=== PATIENT | male | born 1985 | race Caucasian/White ===

== ENCOUNTER 2021-04-01 05:56 | Emergency (ER) | payer OTHER, BC ==
[2021-04-01] MEDS ORDERED: TORAdol 30 mg Injection IV ONE (06:29)
[2021-04-01] MEDS ORDERED: TORAdol 30 mg Injection ONE (06:32)
[2021-04-01 06:42] LABS: Absolute Neutrophil Ct (ANC) 4.89 (1.4-6.9); BASOPHIL % 0.4 % (0.0-0.4); Basophil (Absolute #) 0.04 (0-0.4); Eosinophil % 1.2 % (0.00-5.0); Eosinophil (Absolute #) 0.11 (0-0.5); Hematocrit 49.4 % (42-50); Hemoglobin 16.9 gm/dl (12.5-18.0); Lymphocyte (Absolute #) 3.63 (1.0-4.6); Lymphocytes % 38.5 % (24.0-44.0); Mean Cell Volume 78.9 fl (78-100); Mean Corpuscular Hgb Concent. 34.2 g/dl (32-36); Mean Platelet Volume 10.4 fl (7.5-11.0); Monocyte (Absolute #) 0.75 (0.0-1.3); Neutrophil % 51.9 % (36.0-66.0); Platelet Count 341 K/mm3 (150-450); Red Blood Count 6.26 M/mm3 (4.1-5.6); Red Cell Distribution Width 13.5 % (11.5-14.0); White Blood Count 9.4 K/mm3 (4.0-10.5)
--- NOTE | 2021-04-01 06:43 | ERPHSYRPT ---
- History of Present Illness Historian: patient Exam Limitations: no limitations Patient Subjective Stated Complaint: pt states "I was woke up with severe right sided stomach pain." Triage Nursing Assessment: pt ambulated into the er; pt is grasping RUQ; c/o RUQ pain; pt states 9/10 pain to RUQ; pt states pain is sharp and constent; pt denies vomiting, diarrhea; pt c/o nausea; pt states he had an episode like this a week ago; pt abd is round, soft, tender to RUQ; pt denies rebound tenderness; hyperactive bowel sounds in all quads; mucus membrane pink and moist; pt states last BM at 0200; vitals wnl Timing/Duration: today, constant, sudden, worse Activities at Onset: sleep Quality: cramping, sharpness Abdominal Pain Onset Location: RUQ Pain Radiation: no radiation Severity of Pain-Max: severe Severity of Pain-Current: severe Modifying Factors: Improves With: nothing Associated Symptoms: denies symptoms Previous symptoms: same symptoms as today Hx Tetanus, Diphtheria Vaccination/Date Given: Yes (2020) Hx Influenza Vaccination/Date Given: No Hx Pneumococcal Vaccination/Date Given: No <MATEUS MAGALLON - Last Filed: 04/01/21 06:38> <MCKENNA NEGRON - Last Filed: 04/01/21 07:44> - History of Present Illness Time Seen by Provider: 04/01/21 06:21 Physician History: 36 years old healthy male presented in the ER with chief complaint of sudden onset right upper quadrant pain waking him up from sleep almost 2 hours ago, constant, moderate to severe sharp cramping without any significant aggravating or relieving factors. Denies any associated nausea or vomiting or diarrhea. Reports having similar symptoms almost a week ago. No fever or chills reported. (MATEUS MAGALLON) Allergies/Adverse Reactions: No Known Drug Allergies Allergy (Unverified 04/01/21 06:03) Home Medications: Duloxetine HCl 30 mg [Cymbalta 30 MG Capsule] 30 mg PO BID 04/01/21 [History] Lisinopril/Hydrochlorothiazide [Zestoretic 20-25 Tablet] 1 each PO DAILY 04/01/21 [History] Montelukast Sodium 10 mg [Singulair 10 MG] 10 mg PO DAILY 10/29/21 [History] Travel Risk - International Travel Have you traveled outside of the country in past 3 weeks: No - Coronavirus Screening Are you exhibiting any of the following symptoms?: No Close contact with a COVID-19 positive Pt in past 14-21 Days: No - Vaccine Status Have you recieved a Covid-19 vaccination: Yes Horticulture Supervisor: Moderna - Vaccination Dates Date of 2cond Vaccination (if applicable): 06/24 <MATEUS MAGALLON - Last Filed: 04/01/21 06:38> - Review of Systems Constitutional: No Symptoms Eyes: No Symptoms Ears, Nose, & Throat: No Symptoms Respiratory: No Symptoms Cardiac: No Symptoms Abdominal/Gastrointestinal: Abdominal Pain Genitourinary Symptoms: No Symptoms Musculoskeletal: No Symptoms Skin: No Symptoms Neurological: No Symptoms Psychological: No Symptoms Endocrine: No Symptoms Immunological/Allergic: No Symptoms <MATEUS MAGALLON - Last Filed: 04/01/21 06:38> - Past Medical History Pertinent Past Medical History: Yes Neurological History: Migraines ENT History: No Pertinent History Cardiac History: Hypertension Respiratory History: Sleep Apnea Endocrine Medical History: No Pertinent History Musculoskeletal History: No Pertinent History GI Medical History: Other History: No Pertinent History Psycho-Social History: Anxiety, Depression Male Reproductive Disorders: Other Other Medical History: fatty liver, ED, PTSD - Past Surgical History Past Surgical History: Yes Gastrointestinal: Hernia Repair Male Surgical History: Vasectomy - Social History Smoking Status: Never smoker Exposure to second hand smoke: Yes Drug Use: none Patient Lives Alone: No <MATEUS MAGALLON - Last Filed: 04/01/21 06:38> - Physical Exam General Appearance: no apparent distress, alert Eye Exam: PERRL/EOMI, eyes nml inspection Ears, Nose, Throat Exam: normal ENT inspection, pharynx normal Neck Exam: normal inspection, supple, full range of motion Respiratory Exam: normal breath sounds, lungs clear Cardiovascular Exam: regular rate/rhythm, normal heart sounds Gastrointestinal/Abdomen Exam: soft, normal bowel sounds, tenderness, guarding (Right upper quadrant right upper quadrant) Extremity Exam: normal inspection, normal range of motion Neurologic Exam: alert, oriented x 3, cooperative Skin Exam: normal color, warm Lymphatic Exam: adenopathy SpO2 Interpretation: normal SpO2: 96 O2 Delivery: Room Air <MATEUS MAGALLON - Last Filed: 04/01/21 06:38> - Nursing Vital Signs Nursing Vital Signs: Initial Vital Signs Temperature 96.9 F 04/01/21 06:06 Blood Pressure 140/99 04/01/21 06:06 Pain Scale Pain Intensity 9 Ordered Tests: Active Orders 24 hr Category Date Time Status IV Insertion STAT Care 04/01/21 06:29 Active NPO (ED) STAT Care 04/01/21 06:29 Active GALLBLADDER [US] Stat Exams 04/01/21 06:39 Taken CBC W DIFF Stat Lab 04/01/21 06:10 Completed CMP Stat Lab 04/01/21 06:10 Completed LIPASE Stat Lab 04/01/21 06:10 Completed UA W/RFX UR CULTURE Stat Lab 04/01/21 06:59 Completed Medication Summary Discontinued Medications Generic Name Dose Route Start Last Admin Trade Name Eda PRN Reason Stop Dose Admin Ketorolac Tromethamine 30 mg 04/01/21 06:29 04/01/21 06:33 Ketorolac Tromethamine 30 Mg/Ml Inj IV 04/01/21 06:30 30 mg STAT ONE Administration Ketorolac Tromethamine Confirm 04/01/21 06:32 Ketorolac Tromethamine 30 Mg/Ml Inj Administered 04/01/21 06:33 Dose 30 mg .ROUTE .STK-MED ONE Lab/Rad Data: Laboratory Result Diagrams 04/01/21 06:10 04/01/21 06:10 Laboratory Results 04/01/21 04/01/21 04/01/21 Range/Units 06:59 06:10 06:10 WBC 9.4 (4.0-10.5) K/mm3 RBC 6.26 H* (4.1-5.6) M/mm3 Hgb 16.9 (12.5-18.0) gm/dl Hct 49.4 (42-50) % MCV 78.9 (78-100) fl MCH 27.0 (26-32) pg MCHC 34.2 (32-36) g/dl RDW 13.5 (11.5-14.0) % Plt Count 341 (150-450) K/mm3 MPV 10.4 (7.5-11.0) fl Gran % 51.9 (36.0-66.0) % Eos # (Auto) 0.11 (0-0.5) Absolute Lymphs (auto) 3.63 (1.0-4.6) Absolute Monos (auto) 0.75 (0.0-1.3) Lymphocytes % 38.5 (24.0-44.0) % Monocytes % 8.0 (0.0-12.0) % Eosinophils % 1.2 (0.00-5.0) % Basophils % 0.4 (0.0-0.4) % Absolute Granulocytes 4.89 (1.4-6.9) Basophils # 0.04 (0-0.4) Sodium 140 (137-145) mmol/L Potassium 4.2 (3.5-5.1) mmol/L Chloride 103 (98-107) mmol/L Carbon Dioxide 26 (22-30) mmol/L Anion Gap 15.1 H (5-15) MEQ/L BUN 16 (9-20) mg/dL Creatinine 0.95 (0.66-1.25) mg/dL Estimated GFR > 60.0 ML/MIN Glucose 119 H (74-106) mg/dL Calcium 9.9 (8.4-10.2) mg/dL Total Bilirubin 0.50 (0.2-1.3) mg/dL AST 59 (17-59) U/L ALT 119 H (0-50) U/L Alkaline Phosphatase 62 (38-126) U/L Serum Total Protein 8.0 (6.3-8.2) g/dL Albumin 4.8 (3.5-5.0) g/dL Lipase 187 (23-300) U/L Urine Color YELLOW (YELLOW) Urine Appearance CLEAR (CLEAR) Urine pH 5.0 (5-6) Ur Specific [place] 1.026 (1.005-1.025) Urine Protein NEGATIVE (Negative) Urine Ketones NEGATIVE (NEGATIVE) Urine Blood NEGATIVE (0-5) Josh/ul Urine Nitrite NEGATIVE (NEGATIVE) Urine Bilirubin NEGATIVE (NEGATIVE) Urine Urobilinogen NEGATIVE (0-1) mg/dL Ur Leukocyte Esterase NEGATIVE (NEGATIVE) Urine WBC (Auto) 0-2 (0-5) /HPF Urine RBC (Auto) NONE (0-2) /HPF U Epithel Cells (Auto) NONE (FEW) /HPF Urine Bacteria (Auto) NONE SEEN (NEGATIVE) /HPF Urine Mucus (Auto) SLIGHT (NEGATIVE) /HPF Urine Culture Reflexed NO (NO) Urine Glucose NEGATIVE (NEGATIVE) mg/dL <MATEUS MAGALLON - Last Filed: 04/01/21 06:38> - Progress Progress: improved, pain not gone completely, re-examined Counseled pt/family regarding: lab results, diagnosis, need for follow-up, rad results <MCKENNA NEGRON - Last Filed: 04/01/21 07:44> - Progress Progress Note: 04/01/21 06:57 36 years old is evaluated for right upper quadrant pain. Given Toradol for symptomatic relief. Work-up is pending, care is transferred to Dr. Negron at shift change for reevaluation after work-up and final disposition (MATEUS MAGALLON) 04/01/21 07:33 Gallbladder ultrasound (per machine packaging technician) shows gallbladder sludge without evidence of cholelithiasis or signs of acute cholecystitis. 04/01/21 07:43 Medical decision making: This patient states he is feeling better now. He has had a gallbladder evaluation in the past including a HIDA scan 2 years ago. He felt it might be his gallbladder. He did eat pizza last night and his symptoms were the same as they were a couple of years ago. Patient states [facility] is [facility] and he will follow up with his primary care and general surgery at the [facility]. Patient has Phenergan at home. He refuses Zofran prescription. He does not want any narcotic pain medicine. (MCKENNA NEGRON) <MATEUS MAGALLON - Last Filed: 04/01/21 06:38> - Departure Departure Disposition: Home Critical Care Time: No <MCKENNA NEGRON - Last Filed: 04/01/21 07:44> - Departure Clinical Impression: Right upper quadrant abdominal pain Condition: Stable Referrals: SERGIO MCINTOSH [Primary Care Provider] - Additional Instructions: Avoid fatty greasy spicy foods. Follow-up with your primary care physician for referral to general surgery for further management.
[2021-04-01 06:49] LABS: ALBUMIN 4.8 g/dL (3.5-5.0); ALKALINE PHOSPHATASE 62 U/L (38-126); ANION GAP 15.1 MEQ/L (5-15); BLOOD UREA NITROGEN 16 mg/dL (9-20); CHLORIDE 103 mmol/L (98-107); Calcium 9.9 mg/dL (8.4-10.2); Carbon Dioxide 26 mmol/L (22-30); Creatinine 1 0.95 mg/dL (0.66-1.25); EST GLOMERULAR FILTRATION RATE > 60.0 ML/MIN; Glucose 119 mg/dL (74-106); LIPASE 187 U/L (23-300); Potassium 4.2 mmol/L (3.5-5.1); SGOT/AST 59 U/L (17-59); SGPT/ALT 119 U/L (0-50); SODIUM 140 mmol/L (137-145)
[2021-04-01 07:07] LABS: Appearance CLEAR (CLEAR); Bilirubin NEGATIVE (NEGATIVE); Blood NEGATIVE Ery/ul (0-5); Glucose NEGATIVE (NEGATIVE); Ketones NEGATIVE (NEGATIVE); Leukocyte Esterase NEGATIVE (NEGATIVE); Mucus SLIGHT /HPF (NEGATIVE); Nitrite NEGATIVE (NEGATIVE); Protein,Urine Dip NEGATIVE (Negative); Specific Gravity 1.026 (1.005-1.025); Urobilinogen NEGATIVE mg/dL (0-1); WBC 0-2 /HPF (0-5)
[2021-04-01 07:12] LABS: Bacteria NONE SEEN /HPF (NEGATIVE)
[2021-04-01 08:09] VITALS: BP 113/90; PULSE 70; O2SAT 98
--- NOTE | 2021-04-01 08:52 | XRAY ---
Indication: Right upper quadrant pain. Two-dimensional gallbladder sonogram performed. Comparison: None Gallbladder normally distended with minimal sludge and 5 mm polyp near the neck of the gallbladder. No gallstones, wall thickening, or pericholecystic fluid. Common bile duct measures 4.6 mm. No intrahepatic biliary distention. Remaining visualized liver, pancreas, and right kidney sonographically unremarkable. Right kidney measures 11.6 cm in length. Impression: Minimal gallbladder sludge and tiny polyp. Negative for cholelithiasis or acute cholecystitis.
== END 2021-04-01 08:09 | disposition home or self-care (01) ==
LOC: ED 05:56
DX: R10.11 Right upper quadrant pain (principal)
CPT/HCPCS: 36000; 36415; 76705; 80053; 81001; 83690; 85025; 96374; 99284; J1885

== ENCOUNTER 2021-12-11 01:46 | Emergency (ER) | payer OTHER, BC ==
--- NOTE | 2021-12-11 01:55 | ERPHSYRPT ---
- History of Present Illness Time Seen by Provider: 12/11/21 01:55 Source: patient Exam Limitations: no limitations Physician History: The patient is a 36-year-old male who presents with a chief complaint of left testicular pain. Onset reportedly was just prior to arrival, an estimated 45 minutes. The patient apparently was sleeping and was awoke abruptly with pain in his left testicle. He drove himself to the emergency department. He denies any additional symptoms and denies any prior episodes of testicular pain. He denies dysuria, penile discharge, testicular swelling or erythema. He denies any history of STDs. The patient reported is . The pain is moderate to severe in severity nonradiating constant. Associated Symptoms: No nausea, No vomiting, No abdominal pain Allergies/Adverse Reactions: No Known Drug Allergies Allergy (Unverified 04/01/21 06:03) Home Medications: Duloxetine HCl 30 mg [Cymbalta 30 MG Capsule] 30 mg PO BID 04/01/21 [History] Lisinopril/Hydrochlorothiazide [Zestoretic 20-25 Tablet] 1 each PO DAILY 04/01/21 [History] Cetirizine HCl [Zyrtec] 10 mg PO HS 06/16/21 [History] Lorazepam 0.5 mg [Ativan 0.5 MG] 0.5 mg PO DAILY PRN PRN 06/16/21 [History] Rizatriptan Benzoate [Maxalt] 10 mg PO DAILY PRN PRN 06/16/21 [History] Hx Tetanus, Diphtheria Vaccination/Date Given: Yes (2020) Hx Influenza Vaccination/Date Given: No Hx Pneumococcal Vaccination/Date Given: No Travel Risk - Vaccine Status Have you recieved a Covid-19 vaccination: Yes 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 - Vaccination Dates Date of 2cond Vaccination (if applicable): 06/24 - Review of Systems Constitutional: No Fever, No Chills Abdominal/Gastrointestinal: No Abdominal Pain, No Nausea, No Vomiting Genitourinary Symptoms: Testicle Pain, No Dysuria, No Frequency, No Hematuria, No Incontinence, No Urgency, No Flank Pain, No Penile Discharge Musculoskeletal: No Symptoms Skin: No Symptoms Neurological: No Symptoms Psychological: No Symptoms Endocrine: No Symptoms Hematologic/Lymphatic: No Symptoms Immunological/Allergic: No Symptoms All Other Systems: Reviewed and Negative - Past Medical History Pertinent Past Medical History: Yes Neurological History: Migraines ENT History: No Pertinent History Cardiac History: Hypertension Respiratory History: Sleep Apnea Endocrine Medical History: No Pertinent History Musculoskeletal History: No Pertinent History GI Medical History: Other History: No Pertinent History Psycho-Social History: Anxiety, Depression Male Reproductive Disorders: Other Other Medical History: fatty liver, PTSD - Past Surgical History Past Surgical History: Yes Gastrointestinal: Hernia Repair Male Surgical History: Vasectomy - Social History Smoking Status: Never smoker Exposure to second hand smoke: Yes Drug Use: none Patient Lives Alone: No - Nursing Vital Signs Nursing Vital Signs: Initial Vital Signs Pulse Rate 65 12/11/21 01:50 Respiratory Rate 18 12/11/21 01:50 Blood Pressure 175/118 12/11/21 01:50 O2 Sat by Pulse Oximetry 98 12/11/21 01:50 Pain Scale Pain Intensity 3 - Physical Exam General Appearance: no apparent distress, obese Neck Exam: non-tender, supple Respiratory Exam: normal breath sounds, lungs clear, airway intact, No respiratory distress Cardiovascular Exam: regular rate/rhythm, normal heart sounds, capillary refill <2 sec, No murmur, No friction rub, No gallop Gastrointestinal/Abdomen Exam: soft, other (No hernia), No tenderness, No distention, No mass, No guarding Male Genitalia Exam: testicular tenderness, other (The patient had tenderness upon palpation of the left testicle, specifically the left epididymis. There is no evidence of high riding testicle, no blue dot sign, and the patient's cremasterics reflex was intact.), No hernia, No testicular mass, No penile lesion, No priapism, No penile discharge Extremity Exam: normal inspection Neurologic Exam: alert, oriented x 3, cooperative Skin Exam: normal color, warm, dry, No rash Lymphatic Exam: No adenopathy, No inguinal node tender (L), No inguinal node tender (R) O2 Delivery: Room Air - Course Nursing assessment & vital signs reviewed: Yes - CT Exams Abdomen/Pelvis CT Interpretation: Tele-radiologist Report (Mild left hydroureteroenephrosis with a 2 mm calculus in the distal left ureter) - Radiology Ultrasound Exam Scrotal Ultrasound: negative, No Torsion/Nml Flow (Discussed with US tech) Ordered Tests: Active Orders 24 hr Category Date Time Status ABDOMEN AND PELVIS W/0 CONTRAS [CT] Stat Exams 12/11/21 04:11 Taken TESTICLE [US] Stat Exams 12/11/21 02:06 Taken BMP Stat Lab 12/11/21 02:38 Completed CBC W DIFF Stat Lab 12/11/21 02:38 Completed CULTURE,URINE Stat Lab 12/11/21 03:59 Received UA W/RFX CULTURE Stat Lab 12/11/21 03:59 Completed Medication Summary Discontinued Medications Generic Name Dose Route Start Last Admin Trade Name Eda PRN Reason Stop Dose Admin Ketorolac Tromethamine 15 mg 12/11/21 02:07 12/11/21 02:38 Ketorolac Tromethamine 30 Mg/Ml Inj IV 12/11/21 02:08 15 mg STAT ONE Administration Ketorolac Tromethamine Confirm 12/11/21 02:38 Ketorolac Tromethamine 30 Mg/Ml Inj Administered 12/11/21 02:39 Dose 30 mg .ROUTE .STK-MED ONE Lab/Rad Data: Laboratory Result Diagrams 12/11/21 02:38 12/11/21 02:38 Laboratory Results 12/11/21 12/11/21 12/11/21 Range/Units 03:59 03:59 02:38 WBC (4.0-10.5) x10^3/uL RBC (4.1-5.6) x10^6/uL Hgb (12.5-18.0) g/dL Hct (42-50) % MCV (78-100) fL MCH (26-32) pg MCHC (32-36) g/dL RDW (11.5-14.0) % Plt Count (150-450) x10^3/uL MPV (7.5-11.0) fL Gran % (36.0-66.0) % Immature Gran % (Auto) (0.00-0.4) % Nucleat RBC Rel Count (0.00-0.1) % Eos # (Auto) (0-0.5) x10^3/uL Immature Gran # (Auto) (0.00-0.03) x10^3u/L Absolute Lymphs (auto) (1.0-4.6) x10^3/uL Absolute Monos (auto) (0.0-1.3) x10^3/uL Absolute Nucleated RBC (0.00-0.01) x10^3u/L Lymphocytes % (24.0-44.0) % Monocytes % (0.0-12.0) % Eosinophils % (0.00-5.0) % Basophils % (0.0-0.4) % Absolute Granulocytes (1.4-6.9) x10^3/uL Basophils # (0-0.4) x10^3/uL Sodium 140 (137-145) mmol/L Potassium 3.4 L (3.5-5.1) mmol/L Chloride 102 (98-107) mmol/L Carbon Dioxide 25 (22-30) mmol/L Anion Gap 16.6 H (5-15) MEQ/L BUN 15 (9-20) mg/dL Creatinine 1.15 (0.66-1.25) mg/dL Estimated GFR > 60.0 ML/MIN Glucose 149 H (74-106) mg/dL Calcium 9.4 (8.4-10.2) mg/dL Urinalys Dipstick Clnc MAIN LAB Urine Color DARK YELLOW (YELLOW) Urine Appearance CLOUDY (CLEAR) Urine pH 6.0 (5-6) Ur Specific [place] >=1.030 (1.005-1.025) POC Urine Protein Conf 100 (Negative) Urine Ketones NEGATIVE (NEGATIVE) Urine Nitrite NEGATIVE (NEGATIVE) Urine Bilirubin SMALL (NEGATIVE) Urine Urobilinogen 0.2 (0-1) mg/dL Urine Leukocytes NEGATIVE (NEGATIVE) Urine WBC (Auto) 0-2 (0-5) /HPF Urine RBC (Auto) >101 (0-2) /HPF U Epithel Cells (Auto) NONE (FEW) /HPF Urine Bacteria (Auto) NONE SEEN (NEGATIVE) /HPF Urine RBC LARGE (0-5) Josh/ul Unidentified Crystals 25-50 (NEGATIVE) /HPF Other Casts (Auto) 2-5 (NEGATIVE) /LPF Urine Mucus (Auto) SLIGHT (NEGATIVE) /HPF Ur Culture Indicated? YES Urine Glucose NEGATIVE (NEGATIVE) mg/dL Chlamydia DNA Probe NOT DETECTED (NEGATIVE) N.gonorrhoeae DNA Probe NOT DETECTED (NEGATIVE) 12/11/21 Range/Units 02:38 WBC 9.2 (4.0-10.5) x10^3/uL RBC 5.77 H (4.1-5.6) x10^6/uL Hgb 15.6 (12.5-18.0) g/dL Hct 47.0 (42-50) % MCV 81.5 (78-100) fL MCH 27.0 (26-32) pg MCHC 33.2 (32-36) g/dL RDW 12.8 (11.5-14.0) % Plt Count 266 (150-450) x10^3/uL MPV 9.9 (7.5-11.0) fL Gran % 53.2 (36.0-66.0) % Immature Gran % (Auto) 0.2 (0.00-0.4) % Nucleat RBC Rel Count 0.0 (0.00-0.1) % Eos # (Auto) 0.13 (0-0.5) x10^3/uL Immature Gran # (Auto) 0.02 (0.00-0.03) x10^3u/L Absolute Lymphs (auto) 3.57 (1.0-4.6) x10^3/uL Absolute Monos (auto) 0.53 (0.0-1.3) x10^3/uL Absolute Nucleated RBC 0.00 (0.00-0.01) x10^3u/L Lymphocytes % 39.0 (24.0-44.0) % Monocytes % 5.8 (0.0-12.0) % Eosinophils % 1.4 (0.00-5.0) % Basophils % 0.4 (0.0-0.4) % Absolute Granulocytes 4.86 (1.4-6.9) x10^3/uL Basophils # 0.04 (0-0.4) x10^3/uL Sodium (137-145) mmol/L Potassium (3.5-5.1) mmol/L Chloride (98-107) mmol/L Carbon Dioxide (22-30) mmol/L Anion Gap (5-15) MEQ/L BUN (9-20) mg/dL Creatinine (0.66-1.25) mg/dL Estimated GFR ML/MIN Glucose (74-106) mg/dL Calcium (8.4-10.2) mg/dL Urinalys Dipstick Clnc Urine Color (YELLOW) Urine Appearance (CLEAR) Urine pH (5-6) Ur Specific [place] (1.005-1.025) POC Urine Protein Conf (Negative) Urine Ketones (NEGATIVE) Urine Nitrite (NEGATIVE) Urine Bilirubin (NEGATIVE) Urine Urobilinogen (0-1) mg/dL Urine Leukocytes (NEGATIVE) Urine WBC (Auto) (0-5) /HPF Urine RBC (Auto) (0-2) /HPF U Epithel Cells (Auto) (FEW) /HPF Urine Bacteria (Auto) (NEGATIVE) /HPF Urine RBC (0-5) Josh/ul Unidentified Crystals (NEGATIVE) /HPF Other Casts (Auto) (NEGATIVE) /LPF Urine Mucus (Auto) (NEGATIVE) /HPF Ur Culture Indicated? Urine Glucose (NEGATIVE) mg/dL Chlamydia DNA Probe (NEGATIVE) N.gonorrhoeae DNA Probe (NEGATIVE) - Progress Progress: improved, re-examined Progress Note: 12/11/21 02:07 Radiology department has been notified to call the manufacturing test technician and to performing testicular ultrasound to rule out testicular torsion. 12/11/21 02:43 Nontoxic in appearance. The patient's clinical exam does not appear consistent with testicular torsion at this time but ultrasound will need to be obtained to rule this out. Differential also includes testicular mass, epididymitis, torsed testicular appendage. UA will be obtained to eval for evidence of UTI and urine GC and chlamydia will also be obtained eval for any evidence of gonorrhea or chlamydia which could be the cause of his pain especially if he does have epididymitis and given his age and that he sexually active. He will be given Toradol IV for pain. 12/11/21 03:18 it service technician is currently performing a bedside ultrasound of the patient's left testicle at this time. 12/11/21 03:53 The manufacturing test technician reported there is no evidence of torsion or epididymitis. The patient appears to have 2 small bilateral hydroceles but the remaining testicular ultrasound was relatively benign. Currently waiting on UA. 12/11/21 05:49 UA showed evidence of microscopic hematuria. Because of his left testicular pain and blood, wanted to proceed CT without contrast to eval for evidence of obstructing kidney stone which demonstrated 2 mm obstructing kidney stone on the left UPJ with mild hydronephrosis. Is reassessed to find this pain had resolved and he was comfortable being discharged home. He was updated with his diagnosis and need to follow-up with urology. ED return precautions were renal colic was given also, he was instructed to return if you develop a fever, specifically an oral temperature of 100.4 Fahrenheit or greater and or chills in conjunction with this pain. He agreed with and verbally understood the discharge plan and was comfortable with plan to discharge home. Counseled pt/family regarding: lab results, diagnosis, need for follow-up, rad results - Departure Departure Disposition: Extended Care Facility Clinical Impression: Hydronephrosis concurrent with and due to calculi of kidney and ureter, Renal colic on left side, Left testicular pain Condition: Good Critical Care Time: No Referrals: ESTEBAN RIDLEY [COURTESY STAFF] - Follow up/PCP as directed Instructions: Kidney Stones in Adults Additional Instructions: Please also take ibuprofen up to 400 mg every 8 hours with food for pain control. You can purchase this medication [id number]. Prescriptions: Hydrocodone/APAP 5/325 [[place] 5/325 mg] 1 - 2 each PO Q6H PRN PRN #16 tablet MDD 6 PRN Reason: Pain Ondansetron ODT 4 MG [Zofran Odt 4 mg] 4 mg PO Q6H PRN PRN #20 tablet PRN Reason: Vomiting
[2021-12-11] MEDS ORDERED: TORAdol 30 mg Injection IV ONE (02:07)
[2021-12-11] MEDS ORDERED: TORAdol 30 mg Injection ONE (02:38)
[2021-12-11 02:40] LABS: Absolute Neutrophil Ct (ANC) 4.86 x10^3/uL (1.4-6.9); Basophil (Absolute #) 0.04 x10^3/uL (0-0.4); Eosinophil % 1.4 % (0.00-5.0); Eosinophil (Absolute #) 0.13 x10^3/uL (0-0.5); Hemoglobin 15.6 g/dL (12.5-18.0); Lymphocyte (Absolute #) 3.57 x10^3/uL (1.0-4.6); Mean Cell Volume 81.5 fL (78-100); Mean Corpuscular Hgb Concent. 33.2 g/dL (32-36); Mean Platelet Volume 9.9 fL (7.5-11.0); Monocyte (Absolute #) 0.53 x10^3/uL (0.0-1.3); Monocytes % 5.8 % (0.0-12.0); Neutrophil % 53.2 % (36.0-66.0); Platelet Count 266 x10^3/uL (150-450); Red Blood Count 5.77 x10^6/uL (4.1-5.6); Red Cell Distribution Width 12.8 % (11.5-14.0); White Blood Count 9.2 x10^3/uL (4.0-10.5)
[2021-12-11 02:52] LABS: ANION GAP 16.6 MEQ/L (5-15); BLOOD UREA NITROGEN 15 mg/dL (9-20); CHLORIDE 102 mmol/L (98-107); Calcium 9.4 mg/dL (8.4-10.2); Carbon Dioxide 25 mmol/L (22-30); Creatinine 1 1.15 mg/dL (0.66-1.25); EST GLOMERULAR FILTRATION RATE > 60.0 ML/MIN; Glucose 149 mg/dL (74-106); Potassium 3.4 mmol/L (3.5-5.1); SODIUM 140 mmol/L (137-145)
[2021-12-11 04:09] LABS: Crystals Unidentified 25-50 /HPF (NEGATIVE); Mucus SLIGHT /HPF (NEGATIVE); WBC 0-2 /HPF (0-5)
[2021-12-11 04:10] LABS: Appearance CLOUDY (CLEAR); Bilirubin SMALL (NEGATIVE); Dipstick done @ ? MAIN LAB; Glucose NEGATIVE (NEGATIVE); Ketones NEGATIVE (NEGATIVE); Nitrite NEGATIVE (NEGATIVE); Protein,Urine Dip 100 (Negative); RBC LARGE Ery/ul (0-5); Specific Gravity >=1.030 (1.005-1.025); Urobilinogen 0.2 mg/dL (0-1)
[2021-12-11 04:11] LABS: Bacteria NONE SEEN /HPF (NEGATIVE); RBC >101 /HPF (0-2); Urine Cultured Indicated? YES
[2021-12-11 05:36] LABS: CHLAMYDIA DNA NOT DETECTED (NEGATIVE); GC DNA Probe NOT DETECTED (NEGATIVE)
[2021-12-11 05:53] VITALS: BP 141/92; PULSE 79; O2SAT 96
--- NOTE | 2021-12-11 07:59 | XRAY ---
Indication: Left scrotal pain. Two-dimensional testicular sonogram performed. Comparison: None Both testicles homogeneous in echogenicity with normal color perfusion. Right testicle measures 4.6 x 2.7 x 3.6 cm and the left measures 4.4 x 2.7 x 4.2 cm. Left and right epididymis sonographically unremarkable. Tiny nonspecific scrotal hydroceles, right greater than left. No suspicious extratesticular mass. Impression: Tiny nonspecific bilateral hydroceles. Remaining testicular sonogram is negative. Comment: Preliminary report was given.
--- NOTE | 2021-12-11 08:03 | XRAY ---
Indication: Testicular pain. Nausea. Blood in urine. Multiple contiguous axial images obtained through the abdomen and pelvis without contrast. Comparison: None Lung bases demonstrates minimal dependent atelectasis. No infiltrate or effusion. Heart not enlarged. Noncontrasted stomach and bowel loops appear nonobstructed with normal appendix. No free fluid/air. 2 mm distal left ureter calculus just proximal to the UVJ. Remaining proximal left ureter is slightly prominent along with minimal hydronephrosis consistent with partial obstructive uropathy. Remaining liver, gallbladder, pancreas, spleen, adrenal glands, kidneys, ureters, bladder, and aorta are unremarkable for noncontrast exam. Osseous structures intact. Impression: 1. 2 mm distal left ureter calculus producing partial obstruction as detailed. 2. Remaining CT abdomen/pelvis without contrast exam is negative. Comment: Preliminary interpretation made by [facility]. No critical discrepancy.
== END 2021-12-11 06:04 | disposition home or self-care (01) ==
LOC: ED 01:46
DX: N13.2 Hydronephrosis with renal and ureteral calculous obstruction (principal); N23 Unspecified renal colic; N50.812 Left testicular pain; I10 Essential (primary) hypertension; Z79.899 Other long term (current) drug therapy; Z79.891 Long term (current) use of opiate analgesic
CPT/HCPCS: 36415; 74176; 76870; 80048; 81015; 85025; 87086; 87491; 87591; 96374; 99283; J1885

== ENCOUNTER 2022-11-01 22:31 | Emergency (ER) | payer OTHER, BC ==
[2022-11-01] MEDS ORDERED: PROTONIX 40 MG IV IV ONE ×2 (22:43→23:05)
[2022-11-01] MEDS ORDERED: MORPHINE SULFATE 2 MG INJ IV ONE (22:43)
[2022-11-01] MEDS ORDERED: Sodium Chloride 0.9% 1000 ML 1,000 ML IV STA (22:43)
--- NOTE | 2022-11-01 22:49 | ERPHSYRPT ---
- History of Present Illness Time Seen by Provider: 11/01/22 22:49 Historian: patient Exam Limitations: no limitations Physician History: 37-year-old male presents to emergency room with right upper quadrant abdominal pain that radiates to the epigastric region. Patient reports that the pain started this morning and is gradually been worsening. Describes the pain as james ng punched/kicked in the stomach. He reports nausea and 3 episodes of vomiting today without diarrhea or constipation. The pain is worse with food, but his appetite has been greatly decreased. He denies any fever or chills. Nothing helps the pain. He has a history of gallstones that were shown on ultrasound from August 02. Timing/Duration: today Activities at Onset: rest Quality: sharpness, throbbing Abdominal Pain Onset Location: RUQ Pain Radiation: epigastric Severity of Pain-Max: severe Severity of Pain-Current: severe Modifying Factors: Improves With: nothing. Worsens With: eating, palpation Associated Symptoms: loss of appetite, nausea, vomiting, No back, No chest pain, No diaphoresis, No diarrhea, No fever/chills, No testicular pain Previous symptoms: same symptoms as today Allergies/Adverse Reactions: No Known Drug Allergies Allergy (Verified 11/01/22 22:53) Home Medications: Duloxetine HCl 30 mg [Cymbalta 30 MG Capsule] 30 mg PO BID 04/01/21 [His tory] Lisinopril/Hydrochlorothiazide [Zestoretic 20-25 Tablet] 1 each PO DAILY 04/01/21 [History] Cetirizine HCl [Zyrtec] 10 mg PO HS 06/16/21 [History] Lorazepam 0.5 mg [Ativan 0.5 MG] 0.5 mg PO DAILY PRN PRN 06/16/21 [History] Rizatriptan Benzoate [Maxalt] 10 mg PO DAILY PRN PRN 06/16/21 [History] Hx Tetanus, Diphtheria Vaccination/Date Given: Yes (2020) Hx Influenza Vaccination/Date Given: No Hx Pneumococcal Vaccination/Date Given: No Travel Risk - Vaccine Status Have you recieved a Covid-19 vaccination: Yes Lead Recoverer: Moderna - Vaccination Dates Date of 2cond Vaccination (if applicable): 06/24 - Review of Systems Constitutional: No Symptoms Eyes: No Symptoms Ears, Nose, & Throat: No Symptoms Respiratory: No Symptoms Cardiac: No Symptoms Abdominal/Gastrointestinal: Abdominal Pain, Nausea, Vomiting, Appetite Changes, No Diarrhea, No Constipation, No Hematemesis, No Hematochezia Genitourinary Symptoms: No Symptoms Musculoskeletal: No Symptoms Skin: No Symptoms Neurological: No Symptoms - Past Medical History Pertinent Past Medical History: Yes Neurological History: Migraines ENT History: No Pertinent History Cardiac History: Hypertension Respiratory History: Sleep Apnea Endocrine Medical History: No Pertinent History Musculoskeletal History: No Pertinent History GI Medical History: Other History: No Pertinent History Psycho-Social History: Anxiety, Depression Male Reproductive Disorders: Other Other Medical History: fatty liver, PTSD - Past Surgical History Past Surgical History: Yes Gastrointestinal: Hernia Repair Male Surgical History: Vasectomy - Social History Smoking Status: Never smoker Exposure to second hand smoke: Yes Drug Use: none Patient Lives Alone: No - Nursing Vital Signs Nursing Vital Signs: Initial Vital Signs Temperature 97.8 F 11/01/22 22:38 Pulse Rate 60 11/01/22 22:38 Respiratory Rate 16 11/01/22 22:38 Blood Pressure 153/102 11/01/22 22:38 O2 Sat by Pulse Oximetry 99 11/01/22 22:38 Pain Scale Pain Intensity 8 - Physical Exam General Appearance: mild distress, obese Eye Exam: eyes nml inspection Ears, Nose, Throat Exam: normal ENT inspection Neck Exam: normal inspection, supple, full range of motion Respiratory Exam: normal breath sounds, lungs clear, airway intact, No respiratory distress Cardiovascular Exam: regular rate/rhythm, normal heart sounds, capillary refill <2 sec, No edema Gastrointestinal/Abdomen Exam: soft, normal bowel sounds, tenderness (ruq), guarding, other (+ Dionne sign), No distention, No rebound Back Exam: normal inspection, normal range of motion, No CVA tenderness Extremity Exam: normal inspection, normal range of motion, No swelling, No tenderness Neurologic Exam: alert, oriented x 3, cooperative Skin Exam: normal color, warm, dry SpO2 Interpretation: normal O2 Delivery: Room Air - Course Nursing assessment & vital signs reviewed: Yes - CT Exams Abdomen/Pelvis CT Interpretation: Tele-radiologist Report, Other (distended gallbladder w/o stones or evidence of cholecystitis) Ordered Tests: Active Orders 24 hr Category Date Time Status IV Insertion STAT Care 11/01/22 22:43 Active ABDOMEN AND PELVIS W CONTRAST [CT] Stat Exams 11/01/22 22:48 Completed CBC W DIFF Stat Lab 11/01/22 22:55 Completed CMP Stat Lab 11/01/22 22:55 Completed LIPASE Stat Lab 11/01/22 22:55 Completed Lactic Acid Stat Lab 11/01/22 22:56 Completed UA W/RFX UR CULTURE Stat Lab 11/02/22 01:08 Completed Medication Summary Discontinued Medications Generic Name Dose Route Start Last Admin Trade Name Eda PRN Reason Stop Dose Admin Sodium Chloride 1,000 mls @ 999 mls/hr 11/01/22 22:43 11/01/22 23:08 Sodium Chloride 0.9% 1000 Ml IV 11/01/22 23:43 999 mls/hr .Q1H1M STA Administration Sodium Chloride Confirm 11/01/22 23:03 Sodium Chloride 0.9% 1000 Ml Administered 11/01/22 23:04 Dose 1,000 mls @ ud .ROUTE .STK-MED ONE Morphine Sulfate 2 mg 11/01/22 22:43 11/01/22 23:08 Morphine Sulfate 2 Mg/Ml Inj IV 11/01/22 22:44 2 mg STAT ONE Administration Morphine Sulfate Confirm 11/01/22 23:03 Morphine Sulfate 2 Mg/Ml Inj Administered 11/01/22 23:04 Dose 2 mg .ROUTE .STK-MED ONE Ondansetron HCl Confirm 11/01/22 23:03 Ondansetron Hcl 4 Mg/2 Ml Vial Administered 11/01/22 23:04 Dose 4 mg .ROUTE .STK-MED ONE Pantoprazole Sodium 40 mg 11/01/22 22:43 11/01/22 23:08 Pantoprazole 40 Mg Vial IV 11/01/22 22:44 40 mg STAT ONE Administration Pantoprazole Sodium Confirm 11/01/22 23:05 Pantoprazole 40 Mg Vial Administered 11/01/22 23:06 Dose 40 mg IV .STK-MED ONE Lab/Rad Data: Laboratory Result Diagrams 11/01/22 22:55 11/01/22 22:55 Laboratory Results 11/02/22 11/01/22 11/01/22 Range/Units 01:08 22:56 22:55 WBC (4.0-10.5) x10^3/uL RBC (4.1-5.6) x10^6/uL Hgb (12.5-18.0) g/dL Hct (42-50) % MCV (78-100) fL MCH (26-32) pg MCHC (32-36) g/dL RDW (11.5-14.0) % Plt Count (150-450) x10^3/uL MPV (7.5-11.0) fL Gran % (36.0-66.0) % Immature Gran % (Auto) (0.00-0.4) % Nucleat RBC Rel Count (0.00-0.1) % Eos # (Auto) (0-0.5) x10^3/uL Immature Gran # (Auto) (0.00-0.03) x10^3u/L Absolute Lymphs (auto) (1.0-4.6) x10^3/uL Absolute Monos (auto) (0.0-1.3) x10^3/uL Absolute Nucleated RBC (0.00-0.01) x10^3u/L Lymphocytes % (24.0-44.0) % Monocytes % (0.0-12.0) % Eosinophils % (0.00-5.0) % Basophils % (0.0-0.4) % Absolute Granulocytes (1.4-6.9) x10^3/uL Basophils # (0-0.4) x10^3/uL Sodium 140 (137-145) mmol/L Potassium 4.4 (3.5-5.1) mmol/L Chloride 104 (98-107) mmol/L Carbon Dioxide 28 (22-30) mmol/L Anion Gap 12.1 (5-15) MEQ/L BUN 14 (9-20) mg/dL Creatinine 1.06 (0.66-1.25) mg/dL Estimated GFR > 60.0 ML/MIN Glucose 119 H (74-106) mg/dL Lactic Acid 1.0 (0.4-2.0) Calcium 8.8 (8.4-10.2) mg/dL Total Bilirubin 0.30 (0.2-1.3) mg/dL AST 30 (17-59) U/L ALT 35 (0-50) U/L Alkaline Phosphatase 56 (38-126) U/L Serum Total Protein 6.9 (6.3-8.2) g/dL Albumin 4.2 (3.5-5.0) g/dL Lipase 137 (23-300) U/L Urine Color Yellow (Yellow) Urine Appearance Clear (Clear) Urine pH 7.5 (4.6-8.0) Ur Specific Busy >=1.030 A (1.005-1.030) Urine Protein Negative (Negative) Urine Glucose (UA) Negative (Negative) mg/dL Urine Ketones Negative (Negative) Urine Blood Negative (Negative) Urine Nitrite Negative (Negative) Urine Bilirubin Negative (Negative) Urine Urobilinogen 0.2 (0.2) mg/dL Ur Leukocyte Esterase Negative (Negative) U Hyaline Cast (Auto) NONE SEEN (0-2) /LPF Urine Microscopic RBC 0-2 (0-5) /HPF Urine Microscopic WBC 0-2 (0-5) /HPF Ur Epithelial Cells None Seen (None Seen) /HPF Urine Bacteria None Seen (None Seen) /HPF Urine Culture Reflexed NO (NO) 11/01/22 Range/Units 22:55 WBC 9.6 (4.0-10.5) x10^3/uL RBC 5.28 (4.1-5.6) x10^6/uL Hgb 14.2 (12.5-18.0) g/dL Hct 43.2 (42-50) % MCV 81.8 (78-100) fL MCH 26.9 (26-32) pg MCHC 32.9 (32-36) g/dL RDW 12.8 (11.5-14.0) % Plt Count 254 (150-450) x10^3/uL MPV 10.0 (7.5-11.0) fL Gran % 71.1 H (36.0-66.0) % Immature Gran % (Auto) 0.4 (0.00-0.4) % Nucleat RBC Rel Count 0.0 (0.00-0.1) % Eos # (Auto) 0.02 (0-0.5) x10^3/uL Immature Gran # (Auto) 0.04 H (0.00-0.03) x10^3u/L Absolute Lymphs (auto) 2.14 (1.0-4.6) x10^3/uL Absolute Monos (auto) 0.56 (0.0-1.3) x10^3/uL Absolute Nucleated RBC 0.00 (0.00-0.01) x10^3u/L Lymphocytes % 22.2 L (24.0-44.0) % Monocytes % 5.8 (0.0-12.0) % Eosinophils % 0.2 (0.00-5.0) % Basophils % 0.3 (0.0-0.4) % Absolute Granulocytes 6.83 (1.4-6.9) x10^3/uL Basophils # 0.03 (0-0.4) x10^3/uL Sodium (137-145) mmol/L Potassium (3.5-5.1) mmol/L Chloride (98-107) mmol/L Carbon Dioxide (22-30) mmol/L Anion Gap (5-15) MEQ/L BUN (9-20) mg/dL Creatinine (0.66-1.25) mg/dL Estimated GFR ML/MIN Glucose (74-106) mg/dL Lactic Acid (0.4-2.0) Calcium (8.4-10.2) mg/dL Total Bilirubin (0.2-1.3) mg/dL AST (17-59) U/L ALT (0-50) U/L Alkaline Phosphatase (38-126) U/L Serum Total Protein (6.3-8.2) g/dL Albumin (3.5-5.0) g/dL Lipase (23-300) U/L Urine Color (Yellow) Urine Appearance (Clear) Urine pH (4.6-8.0) Ur Specific Busy (1.005-1.030) Urine Protein (Negative) Urine Glucose (UA) (Negative) mg/dL Urine Ketones (Negative) Urine Blood (Negative) Urine Nitrite (Negative) Urine Bilirubin (Negative) Urine Urobilinogen (0.2) mg/dL Ur Leukocyte Esterase (Negative) U Hyaline Cast (Auto) (0-2) /LPF Urine Microscopic RBC (0-5) /HPF Urine Microscopic WBC (0-5) /HPF Ur Epithelial Cells (None Seen) /HPF Urine Bacteria (None Seen) /HPF Urine Culture Reflexed (NO) - Progress Progress: improved Progress Note: Lab evaluation showed a normal white count, normal hemoglobin, normal liver function, normal lipase and normal urinalysis. No other abnormal findings were noted on laboratory evaluation. CT abdomen pelvis showed no acute pathology. Gallbladder was distended without signs of acute cholecystitis or radiopaque stones. Patient's pain significantly improved after IV hydration and IV morphine. I encouraged the patient to follow-up with Dr. Harris for surgical evaluation. Patient is agreeable to the plan. Counseled pt/family regarding: lab results, diagnosis, need for follow-up, rad results Medical Desision Making - Diagnostic Testing Diagnostic test were ordered, analyzed, and reviewed by me: Yes Radiological Interpretation: Interpreted by me, Reviewed by me, Teleradiologist Report - Risk of complications The pt has a mod risk of morbidity or mortality based on: Need for prescription drug management - Departure Departure Disposition: Home Clinical Impression: Gallbladder attack, History of gallstones, Right upper quadrant abdominal pain Condition: Good Critical Care Time: No Referrals: DOCTOR,NO FAMILY [NON-STAFF PHY W/O PRIVILEGES] - Follow up/PCP as directed TRISHA HARRIS [ACTIVE STAFF] - Follow up/PCP as directed Instructions: Gallstones Prescriptions: Hydrocodone/Acetaminophen [Hydrocodone-Acetamin 10-325 mg] 1 tab PO Q6H PRN #12 tablet MDD 4 tabs PRN Reason: Pain
[2022-11-01] MEDS ORDERED: Sodium Chloride 0.9% 1000 ML 1,000 ML ONE (23:03)
[2022-11-01] MEDS ORDERED: MORPHINE SULFATE 2 MG INJ ONE (23:03)
[2022-11-01] MEDS ORDERED: Zofran 4 MG/2 ML VIAL ONE (23:03)
[2022-11-01 23:05] LABS: Absolute Neutrophil Ct (ANC) 6.83 x10^3/uL (1.4-6.9); BASOPHIL % 0.3 % (0.0-0.4); Basophil (Absolute #) 0.03 x10^3/uL (0-0.4); Eosinophil % 0.2 % (0.00-5.0); Eosinophil (Absolute #) 0.02 x10^3/uL (0-0.5); Hematocrit 43.2 % (42-50); Hemoglobin 14.2 g/dL (12.5-18.0); IMMATURE GRAN # 0.04 x10^3u/L (0.00-0.03); IMMATURE GRAN % 0.4 % (0.00-0.4); Lymphocyte (Absolute #) 2.14 x10^3/uL (1.0-4.6); Lymphocytes % 22.2 % (24.0-44.0); Mean Cell Volume 81.8 fL (78-100); Mean Corpuscular Hemoglobin 26.9 pg (26-32); Mean Corpuscular Hgb Concent. 32.9 g/dL (32-36); Monocyte (Absolute #) 0.56 x10^3/uL (0.0-1.3); Monocytes % 5.8 % (0.0-12.0); Neutrophil % 71.1 % (36.0-66.0); Platelet Count 254 x10^3/uL (150-450); Red Blood Count 5.28 x10^6/uL (4.1-5.6); Red Cell Distribution Width 12.8 % (11.5-14.0); White Blood Count 9.6 x10^3/uL (4.0-10.5)
[2022-11-01 23:19] LABS: ALBUMIN 4.2 g/dL (3.5-5.0); ALKALINE PHOSPHATASE 56 U/L (38-126); ANION GAP 12.1 MEQ/L (5-15); BLOOD UREA NITROGEN 14 mg/dL (9-20); CHLORIDE 104 mmol/L (98-107); Calcium 8.8 mg/dL (8.4-10.2); Carbon Dioxide 28 mmol/L (22-30); Creatinine 1 1.06 mg/dL (0.66-1.25); EST GLOMERULAR FILTRATION RATE > 60.0 ML/MIN; Glucose 119 mg/dL (74-106); LIPASE 137 U/L (23-300); Potassium 4.4 mmol/L (3.5-5.1); SGOT/AST 30 U/L (17-59); SGPT/ALT 35 U/L (0-50); SODIUM 140 mmol/L (137-145); Total Protein 6.9 g/dL (6.3-8.2)
--- NOTE | 2022-11-02 00:30 | XRAY ---
CLINICAL HISTORY:Right upper quadrant pain, nausea, and vomiting; COMPARISON:12/11/21; TECHNIQUES:CT scan of the abdomen and pelvis was performed with contrast. Coronal and sagittal reconstructive images were also obtained. 80cc of Isovue 370 was given IV contrast agent; FINDINGS: Abdomen: The liver is of average size. No focal or diffuse parenchymal abnormality. The portal vein, intrahepatic biliary radicals, and the bile ducts are normal. The spleen, pancreas, and adrenal glands are unremarkable. The kidneys are unremarkable. They are normal in size and shape. No calculi or hydronephrosis. The gallbladder is distended. There is no evidence of wall thickening/ pericholecystic collection. No radiodense calculus is seen in gallbladder. The ascending colon, the transverse colon, and the descending colon, visualized small bowel loops are unremarkable. There is no evidence of significant enlargement of the mesenteric or retroperitoneal lymph nodes. Pelvis: The urinary bladder is unremarkable. The rectosigmoid colon is unremarkable. The prostate appears unremarkable. No evidence of pelvic lymphadenopathy. No definite bony abnormalities could be depicted. IMPRESSION: No evidence of radiodense calculus in gallbladder/ inflammatory changes in gallbladder fossa at the present study. No acute intra-abdominal abnormality. No significant interval changes seen since the previous study dated 12/11/21. Electronically Signed by: Poncho Oseguera MD. (11/01/2022 23:24:27 DIGITAL MEASUREMENT ADVISOR)
[2022-11-02 01:23] LABS: Appearance Clear (Clear); Bacteria None Seen /HPF (None Seen); Bilirubin Negative (Negative); Blood Negative (Negative); Epithelial Cells None Seen /HPF (None Seen); Glucose, Urine Negative (Negative); Hyaline Casts NONE SEEN /LPF (0-2); Ketones Negative (Negative); Leukocyte Esterase Negative (Negative); Nitrite Negative (Negative); Ph 7.5 (4.6-8.0); Protein,Urine Dip Negative (Negative); RBC 0-2 /HPF (0-5); Specific Gravity >=1.030 (1.005-1.030); Urobilinogen 0.2 mg/dL (0.2); WBC 0-2 /HPF (0-5)
[2022-11-02 01:25] LABS: ADD URINE CULTURE? NO (NO)
[2022-11-02 01:44] VITALS: BP 127/74; PULSE 67; O2SAT 97
== END 2022-11-02 01:40 | disposition home or self-care (01) ==
LOC: ED 22:31
DX: K82.8 Other specified diseases of gallbladder (principal); R10.11 Right upper quadrant pain; Z87.19 Personal history of other diseases of the digestive system; R11.2 Nausea with vomiting, unspecified; I10 Essential (primary) hypertension; Z79.891 Long term (current) use of opiate analgesic; Z79.899 Other long term (current) drug therapy
CPT/HCPCS: 36000; 36415; 74177; 80053; 81001; 83605; 83690; 85025; 96374; 96375; 99284; J2270; J2405